=== PATIENT | male | born 1970 | race Caucasian/White ===

== ENCOUNTER 2019-01-11 12:33 | Emergency (ER) | payer OTHER ==
[2019-01-11] MEDS ORDERED: Sodium Chloride 0.9% 1,000 ML IV ONE (13:41)
[2019-01-11] MEDS ORDERED: Ketorolac 30 MG/ML SDV IVPUSH ONE ×2 (13:41→13:46)
--- NOTE | 2019-01-11 14:22 | CR ---
Indication: Shortness of breath. Technique: PA and lateral views the chest were obtained. Comparison: None Findings: Right hemidiaphragm is elevated. The heart is normal in size. The lungs are clear. No infiltrate, pleural effusion, or pneumothorax is identified. Dextroscoliosis of the spine is identified. Impression: No acute cardiopulmonary process. Dictated by Prema Louise MD @ Jan 11 2019 2:19PM Signed by Dr. Prema Louise @ Jan 11 2019 2:20PM
[2019-01-11 14:34] LABS: CHLORIDE,CL 103 mmol/L (98-107); SODIUM,NA 140 mmol/L (136-148)
--- NOTE | 2019-01-11 15:03 | CT ---
Indication: Low-back pain. Technique: Multiple contiguous axial images were obtained through the lumbar spine. Sagittal and coronal reformatted images were performed. Please note that all CT scans at this facility use dose modulation, iterative reconstruction, and/or weight-based dosing when appropriate to reduce radiation dose to as low as reasonably achievable. Comparison: None Findings: Extensive degenerative changes are identified at the facet on the left of T10. Facet joint arthropathy vessel identified at T12 bilaterally. Within the lumbar spine, facet joint arthropathy is identified throughout. Vacuum disc phenomenon is identified at L5-S1. Compression of L1 is identified, resulting in approximately loss of vertebral body height of 50 percent. This appears to be chronic. Anterior osteophytes are identified at [id number], which do appear to be bridging. No acute fracture or subluxation is identified. Impression: Degenerative changes of the lumbar spine. Chronic compression of L1. No acute fracture Please note that all CT scans at this facility use dose modulation, iterative reconstruction, and/or weight-based dosing when appropriate to reduce radiation dose to as low as reasonably achievable. Dictated by Prema Louise MD @ Jan 11 2019 2:52PM Signed by Dr. Prema Louise @ Jan 11 2019 3:00PM
--- NOTE | 2019-01-11 16:02 | EDM.PDOC ---
ED HPI GENERAL MEDICAL PROBLEM - General Chief Complaint: Back Pain or Injury Stated Complaint: BACK PAIN Time Seen by Provider: 01/11/19 12:38 Source of Information: Reports: Patient History Limitations: Reports: No Limitations - History of Present Illness INITIAL COMMENTS - FREE TEXT/NARRATIVE: HISTORY AND PHYSICAL: History of present illness: Patient is a 48-year-old male presents to the ED today with concern of shortness of breath and low back pain. Patient states his symptoms have been ongoing for the past month. Patient states today that the pain in his low back is a little bit more painful than normal, so he decided to come into the ED. He rates his pain a 6 out of 10 and states it does not radiate. Patient states his shortness of breath is worse with activity and better with rest. He does have a history of asthma but has not had an inhaler in several years. Patient states he does have a history of a paralytic diaphragm and has recently had pulmonary function tests performed, but has not heard back on the results. Patient does follow with Dr. Rubio in internal medicine who he sees for these issues. Patient denies fever, chills, chest pain, or cough. Denies headache, neck stiff ness, change in vision, syncope, or near syncope. Patient denies saddle anesthesia, or loss of bowel and bladder function. Denies nausea, vomiting, abdominal pain, diarrhea, constipation, or dysuria. Has not noted any blood in urine or stool. Patient has been eating and drinking appropriately. 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 Review of systems: As per history of present illness and below otherwise all systems reviewed and negative. Past medical history: As per history of present illness and as reviewed below otherwise noncontributory. Surgical history: As per history of present illness and as reviewed below otherwise noncontributory. Social history: See social history for further information Family history: As per history of present illness and as reviewed below otherwise noncontributory. Physical exam: General: Patient is alert, oriented, and in no acute distress. He is sitting comfortably on exam table. HEENT: Atraumatic, normocephalic, pupils equal and reactive bilaterally, negative for conjunctival pallor or scleral icterus, mucous membranes moist, TMs normal bilaterally, throat clear, neck supple, nontender, trachea midline. No drooling or trismus noted. No meningeal signs. No hot potato voice noted. Lungs: Clear to auscultation, breath sounds equal bilaterally, chest nontender. Heart: S1S2, regular rate and rhythm without overt murmur Abdomen: Soft, nondistended, nontender. Negative for masses or hepatosplenomegaly. Negative for costovertebral tenderness. Pelvis: Stable nontender. Genitourinary: Deferred. Rectal: Deferred. Skin: Intact, warm, dry. No lesions or rashes noted. Extremities/musculoskeletal: Atraumatic, negative for cords or calf pain. Neurovascular unremarkable. Mild pain to palpation of the lumbar spine. Full range of motion of cervical, thoracic, and lumbar spine. Neuro: Awake, alert, oriented. Cranial nerves II through XII unremarkable. Cerebellum unremarkable. Motor and sensory unremarkable throughout. Exam nonfocal. Notes: Chest x-ray shows no acute cardiopulmonary process. Lumbar CT shows extensive degenerative changes, chronic compression of L1, but no acute fracture. Patient's pain did improve with therapeutics today. Results were shared with patient. Discussed the importance for follow-up with a primary care provider. Supportive care measures were reviewed and discussed. Voices understanding and is agreeable to plan of care. Denies any further questions or concerns at this time. Diagnostics: CBC, CMP, d-dimer, chest x-ray, EKG, cardiac monitoring, troponin, lipase Therapeutics: Saline, Toradol Prescription: Proair inhaler Impression: Back pain, unspecified Dyspnea Plan: 1. Take inhaler as prescribed. 2. You can use ibuprofen or Tylenol as directed for pain and discomfort. 3. Follow up with your primary care provider as discussed. 4. Return to the ED as needed and as discussed. Definitive disposition and diagnosis as appropriate pending reevaluation and review of above. Back Pain Score (Numeric/FACES): 10 - Related Data Allergies Allergy/AdvReac Type Severity Reaction Status Date / Time Penicillins Allergy Cannot Verified 01/11/19 13:12 Remember Sulfa (Sulfonamide Allergy Cannot Verified 01/11/19 13:12 Antibiotics) Remember Home Meds: Home Meds Celecoxib [CeleBREX] 200 mg PO DAILY 12/04/18 [History] Citalopram Hydrobromide [Celexa] 10 mg PO DAILY 12/04/18 [History] Omeprazole 20 mg PO DAILY 12/04/18 [History] Propranolol HCl 10 mg PO DAILY 12/04/18 [History] Past Medical History HEENT History: Reports: Other (See Below) Other HEENT History: dysphagia Gastrointestinal History: Reports: GERD Musculoskeletal History: Reports: Osteoarthritis Neurological History: Reports: Concussion, Migraines, Other (See Below) Other Neuro History: hx of encephalitis Psychiatric History: Reports: Depression - Infectious Disease History Infectious Disease History: Reports: None - Past Surgical History Head Surgeries/Procedures: Reports: None HEENT Surgical History: Reports: Naso-Sinus Surgery Neurological Surgical History: Reports: C-Spine, Spinal Fusion Musculoskeletal Surgical History: Reports: Knee Replacement, ORIF, Shoulder Surgery Other Musculoskeletal Surgeries/Procedures:: bilateral RTCR, ORIF right wrist Social & Family History - Family History Family Medical History: Noncontributory - Tobacco Use Smoking Status *Q: Never Smoker - Caffeine Use Caffeine Use: Reports: Coffee - Recreational Drug Use Recreational Drug Use: No ED ROS GENERAL - Review of Systems Review Of Systems: ROS reveals no pertinent complaints other than HPI. ED EXAM,LOWER BACK PAIN/INJURY - Physical Exam Exam: See Below (see dictation) Course - Vital Signs Last Recorded V/S: Last Vital Signs Temp 36.3 C 01/11/19 13:13 Pulse 81 01/11/19 15:36 Resp 16 01/11/19 15:36 BP 143/86 H 01/11/19 15:36 Pulse Ox 96 01/11/19 15:36 - Orders/Labs/Meds Orders: Active Orders 24 hr Category Date Time Status Cardiac Monitoring [RC] . DIRECTED Care 01/11/19 13:41 Active EKG Documentation Completion [RC] STAT Care 01/11/19 13:41 Active Labs: Laboratory Tests 01/11/19 01/11/19 01/11/19 Range/Units 13:51 13:51 13:51 WBC 7.22 (4.0-11.0) K/uL RBC 5.24 (4.50-5.90) M/uL Hgb 16.7 (13.0-17.0) g/dL Hct 47.1 (38.0-50.0) % MCV 89.9 (80.0-98.0) fL MCH 31.9 (27.0-32.0) pg MCHC 35.5 (31.0-37.0) g/dL RDW Std Deviation 42.4 (28.0-62.0) fl RDW Coeff of Billy 13 (11.0-15.0) % Plt Count 309 (150-400) K/uL MPV 9.40 (7.40-12.00) fL Neut % (Auto) 63.2 (48.0-80.0) % Lymph % (Auto) 23.7 (16.0-40.0) % Ray % (Auto) 6.6 (0.0-15.0) % Eos % (Auto) 5.8 (0.0-7.0) % Baso % (Auto) 0.7 (0.0-1.5) % Neut # (Auto) 4.6 (1.4-5.7) K/uL Lymph # (Auto) 1.7 (0.6-2.4) K/uL Ray # (Auto) 0.5 (0.0-0.8) K/uL Eos # (Auto) 0.4 (0.0-0.7) K/uL Baso # (Auto) 0.1 (0.0-0.1) K/uL Nucleated RBC % 0.0 /100WBC Nucleated RBCs # 0 K/uL D-Dimer, Quantitative 0.27 (0.0-0.50) mg/L FEU Sodium 140 (136-148) mmol/L Potassium 3.7 (3.5-5.1) mmol/L Chloride 103 (98-107) mmol/L Carbon Dioxide 25.8 (21.0-32.0) mmol/L BUN 15 (7.0-18.0) mg/dL Creatinine 1.1 (0.8-1.3) mg/dL Est Cr Clr Drug Dosing 88.42 mL/min Estimated GFR (MDRD) > 60.0 ml/min Glucose 162 H (74-106) mg/dL Calcium 9.3 (8.5-10.1) mg/dL Total Bilirubin 1.2 H (0.2-1.0) mg/dL AST 35 (15-37) IU/L ALT 85 H (14-63) IU/L Alkaline Phosphatase 83 (46-116) U/L Troponin I < 0.050 (0.000-0.056) ng/mL Total Protein 8.0 (6.4-8.2) g/dL Albumin 4.1 (3.4-5.0) g/dL Globulin 3.9 (2.6-4.0) g/dL Albumin/Globulin Ratio 1.1 (0.9-1.6) Lipase 85 (73-393) U/L Urine Color Urine Appearance Urine pH (5.0-8.0) Ur Specific [place] (1.001-1.035) Urine Protein (NEGATIVE) mg/dL Urine Glucose (UA) (NEGATIVE) mg/dL Urine Ketones (NEGATIVE) mg/dL Urine Occult Blood (NEGATIVE) Urine Nitrite (NEGATIVE) Urine Bilirubin (NEGATIVE) Urine Ictotest Urine Urobilinogen (<2.0) EU/dL Ur Leukocyte Esterase (NEGATIVE) 01/11/19 Range/Units 14:15 WBC (4.0-11.0) K/uL RBC (4.50-5.90) M/uL Hgb (13.0-17.0) g/dL Hct (38.0-50.0) % MCV (80.0-98.0) fL MCH (27.0-32.0) pg MCHC (31.0-37.0) g/dL RDW Std Deviation (28.0-62.0) fl RDW Coeff of Billy (11.0-15.0) % Plt Count (150-400) K/uL MPV (7.40-12.00) fL Neut % (Auto) (48.0-80.0) % Lymph % (Auto) (16.0-40.0) % Ray % (Auto) (0.0-15.0) % Eos % (Auto) (0.0-7.0) % Baso % (Auto) (0.0-1.5) % Neut # (Auto) (1.4-5.7) K/uL Lymph # (Auto) (0.6-2.4) K/uL Ray # (Auto) (0.0-0.8) K/uL Eos # (Auto) (0.0-0.7) K/uL Baso # (Auto) (0.0-0.1) K/uL Nucleated RBC % /100WBC Nucleated RBCs # K/uL D-Dimer, Quantitative (0.0-0.50) mg/L FEU Sodium (136-148) mmol/L Potassium (3.5-5.1) mmol/L Chloride (98-107) mmol/L Carbon Dioxide (21.0-32.0) mmol/L BUN (7.0-18.0) mg/dL Creatinine (0.8-1.3) mg/dL Est Cr Clr Drug Dosing mL/min Estimated GFR (MDRD) ml/min Glucose (74-106) mg/dL Calcium (8.5-10.1) mg/dL Total Bilirubin (0.2-1.0) mg/dL AST (15-37) IU/L ALT (14-63) IU/L Alkaline Phosphatase (46-116) U/L Troponin I (0.000-0.056) ng/mL Total Protein (6.4-8.2) g/dL Albumin (3.4-5.0) g/dL Globulin (2.6-4.0) g/dL Albumin/Globulin Ratio (0.9-1.6) Lipase (73-393) U/L Urine Color YELLOW Urine Appearance CLEAR Urine pH 5.5 (5.0-8.0) Ur Specific [place] >= 1.030 (1.001-1.035) Urine Protein NEGATIVE (NEGATIVE) mg/dL Urine Glucose (UA) NEGATIVE (NEGATIVE) mg/dL Urine Ketones NEGATIVE (NEGATIVE) mg/dL Urine Occult Blood NEGATIVE (NEGATIVE) Urine Nitrite NEGATIVE (NEGATIVE) Urine Bilirubin SMALL H (NEGATIVE) Urine Ictotest NEGATIVE Urine Urobilinogen 0.2 (<2.0) EU/dL Ur Leukocyte Esterase NEGATIVE (NEGATIVE) Meds: Medications Discontinued Medications Generic Name Dose Route Start Last Admin Trade Name Freq PRN Reason Stop Dose Admin Sodium Chloride 1,000 mls @ 999 mls/hr 01/11/19 13:41 01/11/19 15:12 Normal Saline IV 01/11/19 14:41 999 mls/hr BOLUS ONE Administration Ketorolac Tromethamine 60 mg 01/11/19 13:41 Toradol IVPUSH 01/11/19 13:42 ONETIME ONE Ketorolac Tromethamine 30 mg 01/11/19 13:46 01/11/19 15:13 Toradol IVPUSH 01/11/19 13:47 30 mg ONETIME ONE Administration Departure - Departure Time of Disposition: 16:01 Disposition: Home, Self-Care 01 Clinical Impression: Degenerative disc disease Qualifiers: Spinal region: lumbosacral Qualified Code(s): M51.37 - Other intervertebral disc degeneration, lumbosacral region Dyspnea Qualifiers: Dyspnea type: unspecified Qualified Code(s): R06.00 - Dyspnea, unspecified - Discharge Information Instructions: Back Pain, Adult, [id number] Referrals: PCP,Unknown [Primary Care Provider] - Forms: ED Department Discharge Additional Instructions: The following information is given to patients seen in the emergency department who are being discharged to home. This information is to outline your options for follow-up care. We provide all patients seen in our emergency department with a follow-up referral. The need for follow-up, as well as the timing and circumstances, are variable depending upon the specifics of your emergency department visit. If you don't have a primary care physician on staff, we will provide you with a referral. We always advise you to contact your personal physician following an emergency department visit to inform them of the circumstance of the visit and for follow-up with them and/or the need for any referrals to a consulting specialist. The emergency department will also refer you to a specialist when appropriate. This referral assures that you have the opportunity for follow-up care with a specialist. All of these measure are taken in an effort to provide you with optimal care, which includes your follow-up. Under all circumstances we always encourage you to contact your private physician who remains a resource for coordinating your care. When calling for follow-up care, please make the office aware that this follow-up is from your recent emergency room visit. If for any reason you are refused follow-up, please contact the [facility] Emergency Department at and asked to speak to the emergency department charge nurse. [facility] [address] [place] [address] [id number] [facility] [address] [place] [id number] 1. Take inhaler as prescribed. 2. You can use ibuprofen or Tylenol as directed for pain and discomfort. 3. Follow up with your primary care provider as discussed. 4. Return to the ED as needed and as discussed. - My Orders Last 24 Hours: My Active Orders 01/11/19 13:41 Cardiac Monitoring [RC] . DIRECTED EKG Documentation Completion [RC] STAT - Assessment/Plan Last 24 Hours: My Active Orders 01/11/19 13:41 Cardiac Monitoring [RC] . DIRECTED EKG Documentation Completion [RC] STAT
== END 2019-01-11 16:30 | disposition home or self-care (01) ==
LOC: MW.ED 12:33
DX: M51.37 Other intervertebral disc degeneration, lumbosacral region (principal); R06.00 Dyspnea, unspecified; Z88.0 Allergy status to penicillin; Z88.2 Allergy status to sulfonamides; Z79.899 Other long term (current) drug therapy
CPT/HCPCS: 36415; 71046; 72131; 80053; 81003; 83690; 84484; 85025; 85379; 93005; 96361; 96374; 99284; J1885; J7040

== ENCOUNTER 2019-05-08 20:49 | Emergency (ER) | payer OTHER ==
[2019-05-08] MEDS ORDERED: Ketorolac 60 MG/2 ML SDV IM ONE (21:17)
--- NOTE | 2019-05-08 21:18 | EDM.PDOC ---
ED HPI GENERAL MEDICAL PROBLEM - General Chief Complaint: Back Pain or Injury Stated Complaint: BODY PAIN Time Seen by Provider: 05/08/19 21:15 - History of Present Illness INITIAL COMMENTS - FREE TEXT/NARRATIVE: HISTORY AND PHYSICAL: History of present illness: Patient 48-year-old white male history of ankylosing spondylitis presents with concern of acute exacerbation of his chronic pain he has been managed on Humira and Celebrex. He denies any new trauma he states this is a chronic problem. No fever chills nausea vomiting or other complaints Review of systems: As per history of present illness and below otherwise all systems reviewed and negative. Past medical history: As per history of present illness and as reviewed below otherwise noncontributory. Surgical history: As per history of present illness and as reviewed below otherwise noncontributory. Social history: No reported history of drug or alcohol abuse. Family history: As per history of present illness and as reviewed below otherwise noncontributory. Physical exam: HEENT: Atraumatic, normocephalic, pupils reactive, negative for conjunctival pallor or scleral icterus, mucous membranes moist, throat clear, neck supple, nontender, trachea midline. Lungs: Clear to auscultation, breath sounds equal bilaterally, chest nontender. Heart: S1S2, regular, negative for clicks, rubs, or JVD. Abdomen: Soft, nondistended, nontender. Negative for masses or hepatosplenomegaly. Negative for costovertebral tenderness. Pelvis: Stable nontender. Genitourinary: Deferred. Rectal: Deferred. Extremities: Atraumatic, negative for cords or calf pain. Neurovascular unremarkable. Neuro: Awake, alert, oriented. Cranial nerves II through XII unremarkable. Cerebellum unremarkable. Motor and sensory unremarkable throughout. Exam nonfocal. Diagnostics: None Therapeutics: Toradol 60 mg IM Impression: #1 history of ankylosing spondylitis #2 medical screening exam #3 history of chronic pain syndrome secondary to #1 Definitive disposition and diagnosis as appropriate pending reevaluation and review of above. - Related Data Allergies Allergy/AdvReac Type Severity Reaction Status Date / Time Penicillins Allergy Cannot Verified 01/11/19 13:12 Remember Sulfa (Sulfonamide Allergy Cannot Verified 01/11/19 13:12 Antibiotics) Remember Home Meds: Home Meds Celecoxib [CeleBREX] 200 mg PO DAILY 12/04/18 [History] Citalopram Hydrobromide [Celexa] 10 mg PO DAILY 12/04/18 [History] Omeprazole 20 mg PO DAILY 12/04/18 [History] Propranolol HCl 10 mg PO DAILY 12/04/18 [History] Past Medical History HEENT History: Reports: Other (See Below) Other HEENT History: dysphagia Gastrointestinal History: Reports: GERD Musculoskeletal History: Reports: Osteoarthritis Neurological History: Reports: Concussion, Migraines, Other (See Below) Other Neuro History: hx of encephalitis Psychiatric History: Reports: Depression - Infectious Disease History Infectious Disease History: Reports: None - Past Surgical History Head Surgeries/Procedures: Reports: None HEENT Surgical History: Reports: Naso-Sinus Surgery Neurological Surgical History: Reports: C-Spine, Spinal Fusion Musculoskeletal Surgical History: Reports: Knee Replacement, ORIF, Shoulder Surgery Other Musculoskeletal Surgeries/Procedures:: bilateral RTCR, ORIF right wrist Social & Family History - Family History Family Medical History: Noncontributory - Caffeine Use Caffeine Use: Reports: Coffee ED ROS GENERAL - Review of Systems Review Of Systems: ROS reveals no pertinent complaints other than HPI. ED EXAM, GENERAL - Physical Exam Exam: See Below (See dictation) Departure - Departure Time of Disposition: 21:17 Disposition: Home, Self-Care 01 Condition: Good Clinical Impression: Ankylosing spondylitis, Chronic pain - Discharge Information Referrals: PCP,None [Primary Care Provider] - Additional Instructions: The following information is given to patients seen in the emergency department who are being discharged to home. This information is to outline your options for follow-up care. We provide all patients seen in our emergency department with a follow-up referral. The need for follow-up, as well as the timing and circumstances, are variable depending upon the specifics of your emergency department visit. If you don't have a primary care physician on staff, we will provide you with a referral. We always advise you to contact your personal physician following an emergency department visit to inform them of the circumstance of the visit and for follow-up with them and/or the need for any referrals to a consulting specialist. The emergency department will also refer you to a specialist when appropriate. This referral assures that you have the opportunity for followup care with a specialist. All of these measure are taken in an effort to provide you with optimal care, which includes your followup. Under all circumstances we always encourage you to contact your private physician who remains a resource for coordinating your care. When calling for followup care, please make the office aware that this follow-up is from your recent emergency room visit. If for any reason you are refused follow-up, please contact the [facility] emergency department at and asked to speak to the emergency department charge nurse. Continue current medications follow-up private medical doctor as discussed for reevaluation and more robust discussion regarding chronic pain management with acute exacerbations and possible considerations for alternative options for acute exacerbations. Discussion also regarding pain management consultation.
== END 2019-05-08 21:58 | disposition home or self-care (01) ==
LOC: MW.ED 20:49
DX: M45.9 Ankylosing spondylitis of unspecified sites in spine (principal); G89.29 Other chronic pain; F32.9 Major depressive disorder, single episode, unspecified; K21.9 Gastro-esophageal reflux disease without esophagitis; Z88.0 Allergy status to penicillin; Z88.1 Allergy status to other antibiotic agents; Z79.1 Long term (current) use of non-steroidal anti-inflammatories (NSAID); Z79.899 Other long term (current) drug therapy; Z79.891 Long term (current) use of opiate analgesic; Z96.659 Presence of unspecified artificial knee joint
CPT/HCPCS: 96372; 99283; J1885; 99282

== ENCOUNTER 2020-01-19 10:24 | Emergency (ER) | payer OTHER, BC ==
--- NOTE | 2020-01-19 10:46 | EDM.PDOC ---
ED HPI GENERAL MEDICAL PROBLEM - General Chief Complaint: Upper Extremity Injury/Pain Stated Complaint: INJURY RT WRIST Time Seen by Provider: 01/19/20 10:24 Source of Information: Reports: Patient History Limitations: Reports: No Limitations - History of Present Illness INITIAL COMMENTS - FREE TEXT/NARRATIVE: HISTORY AND PHYSICAL: History of present illness: Patient is a 49-year-old male who presents to the ED today with concern of right wrist injury that occurred just prior to arrival to the ED. Patient states that he has a grain bin to feed his horses which has a steering well to open a grain bin. Patient states his hand slipped and he hit his right wrist on the grain bin. Patient states since then he has had some tingling sensation in his hand. Patient states that he does have arthritis of both of his hands which are painful at baseline for patient. Patient denies any other symptoms or concerns. Patient denies fever, chills, chest pain, shortness of breath, or cough. Denies headache, neck stiff ness, change in vision, syncope, or near syncope. Denies nausea, vomiting, abdominal pain, diarrhea, constipation, or dysuria. Has not noted any blood in urine or stool. Patient has been eating and drinking appropriately. Review of systems: As per history of present illness and below otherwise all systems reviewed and negative. Past medical history: As per history of present illness and as reviewed below otherwise noncontributory. Surgical history: As per history of present illness and as reviewed below otherwise noncontributory. Social history: See social history for further information Family history: As per history of present illness and as reviewed below otherwise noncontributory. Physical exam: General: Patient is alert, oriented, and in no acute distress. Patient sitting comfortably on exam table. HEENT: Atraumatic, normocephalic, pupils equal and reactive bilaterally, negative for conjunctival pallor or scleral icterus, mucous membranes moist, TMs normal bilaterally, throat clear, neck supple, nontender, trachea midline. No drooling or trismus noted. No meningeal signs. No hot potato voice noted. Lungs: Clear to auscultation, breath sounds equal bilaterally, chest nontender. Heart: S1S2, regular rate and rhythm without overt murmur Abdomen: Soft, nondistended, nontender. Negative for masses or hepatosplenomegaly. Negative for costovertebral tenderness. Pelvis: Stable nontender. Genitourinary: Deferred. Rectal: Deferred. Skin: Intact, warm, dry. No lesions or rashes noted. Extremities: No obvious deformity of the left upper extremity. Patient does have snuff box tenderness of the right hand. Patient has limited ROM of the right wrist due to pain. Radial pulse grossly intact w cap refill < 2 seconds. Full sensation to light and deep touch. Otherwise, Atraumatic, negative for cords or calf pain. Neurovascular unremarkable. Neuro: Awake, alert, oriented. Cranial nerves II through XII unremarkable. Cerebellum unremarkable. Motor and sensory unremarkable throughout. Exam nonfocal. Notes: Discussed the importance for follow up with an orthopedic provider and primary care provider. Voices understanding and is agreeable to plan of care. Denies any further questions or concerns at this time. Diagnostics: hand and wrist XR Therapeutics: Thumb spica splint placed by nursing staff. To be worn until orthopedic follow up of the right wrist Prescription: None Impression: Right hand injury, cannot r/o scaphoid fracture Plan: 1. Rest, ice, elevate the affected extremity. You can apply ice 15 minutes on, 15 minutes off. Keep splint on until orthopedic follow up. 2. Tylenol and/or Ibuprofen as directed for pain management or discomfort. 3. Follow up with the Orthopedic provider and primary care provider as discussed. Return to the ED as needed and as discussed. Definitive disposition and diagnosis as appropriate pending reevaluation and review of above. Right Wrist Pain Score (Numeric/FACES): 6 - Related Data Allergies Allergy/AdvReac Type Severity Reaction Status Date / Time Penicillins Allergy Cannot Verified 05/08/19 21:45 Remember Sulfa (Sulfonamide Allergy Cannot Verified 05/08/19 21:45 Antibiotics) Remember Home Meds: Home Meds Celecoxib [CeleBREX] 200 mg PO DAILY 12/04/18 [History] Citalopram Hydrobromide [Celexa] 10 mg PO DAILY 12/04/18 [History] Omeprazole 20 mg PO DAILY 12/04/18 [History] Propranolol HCl 10 mg PO DAILY 12/04/18 [History] Adalimumab [Humira] 10 mg SQ WEEKLY 05/08/19 [History] Past Medical History HEENT History: Reports: Other (See Below) Other HEENT History: dysphagia Gastrointestinal History: Reports: GERD Musculoskeletal History: Reports: Osteoarthritis Neurological History: Reports: Concussion, Migraines, Other (See Below) Other Neuro History: hx of encephalitis Psychiatric History: Reports: Depression - Infectious Disease History Infectious Disease History: Reports: None - Past Surgical History Head Surgeries/Procedures: Reports: None HEENT Surgical History: Reports: Naso-Sinus Surgery Neurological Surgical History: Reports: C-Spine, Spinal Fusion Musculoskeletal Surgical History: Reports: Knee Replacement, ORIF, Shoulder Surgery Other Musculoskeletal Surgeries/Procedures:: bilateral RTCR, ORIF right wrist Social & Family History - Family History Family Medical History: Noncontributory - Caffeine Use Caffeine Use: Reports: Coffee Review of Systems - Review of Systems Review Of Systems: Comprehensive ROS is negative, except as noted in HPI. ED EXAM, GENERAL - Physical Exam Exam: See Below (see dictation) Course - Vital Signs Last Recorded V/S: Last Vital Signs Temp 97.5 F 01/19/20 10:39 Pulse 78 01/19/20 10:39 Resp 16 01/19/20 10:39 BP 145/80 H 01/19/20 10:39 Pulse Ox 94 L 01/19/20 10:39 - Orders/Labs/Meds Orders: Active Orders 24 hr Category Date Time Status DME for Discharge [COMM] Stat Oth 01/19/20 11:21 Ordered Departure - Departure Time of Disposition: 11:23 Disposition: Home, Self-Care 01 Clinical Impression: Hand injury Qualifiers: Encounter type: initial encounter Laterality: right Qualified Code(s): S69.91XA - Unspecified injury of right wrist, hand and finger(s), initial encounter - Discharge Information Referrals: Miguel Owen MD [Primary Care Provider] - Forms: ED Department Discharge Additional Instructions: The following information is given to patients seen in the emergency department who are being discharged to home. This information is to outline your options for follow-up care. We provide all patients seen in our emergency department with a follow-up referral. The need for follow-up, as well as the timing and circumstances, are variable depending upon the specifics of your emergency department visit. If you don't have a primary care physician on staff, we will provide you with a referral. We always advise you to contact your personal physician following an emergency department visit to inform them of the circumstance of the visit and for follow-up with them and/or the need for any referrals to a consulting specialist. The emergency department will also refer you to a specialist when appropriate. This referral assures that you have the opportunity for follow-up care with a specialist. All of these measure are taken in an effort to provide you with optimal care, which includes your follow-up. Under all circumstances we always encourage you to contact your private physician who remains a resource for coordinating your care. When calling for follow-up care, please make the office aware that this follow-up is from your recent emergency room visit. If for any reason you are refused follow-up, please contact the [facility] Emergency Department at and asked to speak to the emergency department charge nurse. [facility] [address] [place] [address] [id number] [address] [facility] - Orthopedic Clinic Professional [facility] [address] [place] [address], [address] [place] [address] 1. Rest, ice, elevate the affected extremity. You can apply ice 15 minutes on, 15 minutes off. Keep splint on until orthopedic follow up. 2. Tylenol and/or Ibuprofen as directed for pain management or discomfort. 3. Follow up with the Orthopedic provider and primary care provider as discussed. Return to the ED as needed and as discussed. Sepsis Event Note - Focused Exam Vital Signs: Vital Signs Temp Pulse Resp BP Pulse Ox 01/19/20 10:39 97.5 F 78 16 145/80 H 94 L Date Exam was Performed: 01/19/20 Time Exam was Performed: 11:22 - My Orders Last 24 Hours: My Active Orders 01/19/20 11:21 DME for Discharge [COMM] Stat - Assessment/Plan Last 24 Hours: My Active Orders 01/19/20 11:21 DME for Discharge [COMM] Stat
--- NOTE | 2020-01-19 11:12 | CR ---
Right wrist: 3 views of the right wrist were obtained. Comparison: Previous right wrist study of 11/25/18. Findings: Severe joint space narrowing is noted between the distal radius and navicular bone. Detached bony density off the radial styloid process is seen which appears old. Metallic densities along the lateral wrist which appears stable. Widening of the distance between the navicular bone and radius is seen compatible with chronic ligamentous intercarpal rupture. Nothing acute is appreciated. Impression: 1. Degenerative change and other findings as noted above. Findings are felt to be chronic. 2. Nothing acute is seen. Diagnostic code #3 Study was dictated in MDT
--- NOTE | 2020-01-19 11:12 | CR ---
Right hand: 3 views of the right hand are obtained. Degenerative change is noted between the radius and navicular bone. Small detached bony density is noted off the radial styloid process most likely representing old fracture or detached spur. Small metallic densities are seen within the lateral wrist which are most likely old and please correlate. No acute fracture or dislocation is seen. Impression: 1. Degenerative change as noted above. 2. Small metallic foreign bodies most likely old, please correlate. 3. No acute abnormality is definitely appreciated. Diagnostic code #2 Study was dictated in MDT
== END 2020-01-19 11:38 | disposition home or self-care (01) ==
LOC: MW.ED 10:24
DX: S69.91XA Unspecified injury of right wrist, hand and finger(s), initial encounter (principal); K21.9 Gastro-esophageal reflux disease without esophagitis; F32.9 Major depressive disorder, single episode, unspecified; M19.90 Unspecified osteoarthritis, unspecified site; Z88.0 Allergy status to penicillin; Z88.2 Allergy status to sulfonamides; Z79.899 Other long term (current) drug therapy; Z98.890 Other specified postprocedural states; W22.8XXA Striking against or struck by other objects, initial encounter
CPT/HCPCS: 29125; 73110-26-RT; 73110-RT; 73130-26-RT; 73130-RT; 99283; 99283-25